=== PATIENT | male | born 1950 | race African-American/Black ===

== ENCOUNTER 2020-06-21 06:58 | Emergency (ER) | payer MEDICARE, OTHER ==
[~2020-06-21] VITALS: Ht 170.2 cm; Wt 66.0 kg
[~2020-06-21 06:58] MED LIST: ACLI400A3 IH; ALBU8.5H6 IH; CARI350T PO; FLUT1DIS5 IH; NEBI10TA3 PO; OXYC1TAB20 PO; OXYC20TA35 PO
--- NOTE | 2020-06-21 07:21 | PHYS DOC ---
Past History Past Medical History: Asthma, Heart Disease, Hypertension, Other Past Surgical History: No Surgical History Smoking: Quit Less Than 1 Year Alcohol Use: None Drug Use: None General Adult EDM: Chief Complaint: food bolus HPI: HPI: Patient is a 70-year-old male who feels like he has a piece of chicken stuck in his esophagus for last 2 hours. Patient was eating a drumstick and feels like there is a chunk of meat stuck. Patient states he was having trouble keeping liquids down but feels like it may be better now. Pain is moderate at onset and mild currently and worse with swallowing. Patient denies any recent fevers chills cough shortness of breath. Patient had similar symptoms a year ago and had to have endoscopy. Review of Systems: Review of Systems: Constitutional: Denies fever or chills Eyes: Denies change in visual acuity HENT: Denies nasal congestion or sore throat Respiratory: Denies cough or shortness of breath Cardiovascular: Denies chest pain or edema GI: Denies abdominal pain, nausea, vomiting, bloody stools or diarrhea : Denies dysuria Musculoskeletal: Denies back pain or joint pain Integument: Denies rash Neurologic: Denies headache, focal weakness or sensory changes Endocrine: Denies polyuria or polydipsia Lymphatic: Denies swollen glands Psychiatric: Denies depression or anxiety Heart Score: Risk Factors: Risk Factors: DM, Current or recent (<one month) smoker, HTN, HLP, family history of CAD, obesity. Risk Scores: Score 0 - 3: 2.5% MACE over next 6 weeks - Discharge Home Score 4 - 6: 20.3% MACE over next 6 weeks - Admit for Clinical Observation Score 7 - 10: 72.7% MACE over next 6 weeks - Early Invasive Strategies Allergies: Allergies: Allergies Coded Allergies Type Severity Reaction Last Updated Verified No Known Drug Allergies 09/02/13 No Physical Exam: PE: Constitutional: Well developed, well nourished, no acute distress, non-toxic appearance. [] HENT: Normocephalic, atraumatic, bilateral external ears normal, no trismus, nose normal. [] Eyes: PERRLA, EOMI, conjunctiva normal, no discharge. [] Neck: Normal range of motion, no tenderness, supple, no stridor. [] Cardiovascular:Heart rate regular rhythm, peripheral pulses intact, cap refill brisk Lungs & Thorax: Bilateral breath sounds clear, no respiratory distress Abdomen: Soft nontender nondistended Skin: Warm, dry, no erythema, no rash. [] Back: No tenderness, no CVA tenderness. [] Extremities: No tenderness, no cyanosis, no clubbing, ROM intact, no edema. [] Neurologic: Alert and oriented X 3, normal motor function, normal sensory function, no focal deficits noted. [] Psychologic: Affect normal, judgement normal, mood normal. [] EKG: EKG: [] Radiology/Procedures: Radiology/Procedures: [] Course & Med Decision Making: Course & Med Decision Making Pertinent Labs and Imaging studies reviewed. (See chart for details) [] 70-year-old male presents with a food bolus. Patient failed p.o. trial and was given glucagon and failed p.o. trial again. I discussed the case with Dr. Marie who is a GI doctor at [place] as well as the ER doctor, Dr. Hancock who accepts the patient to the ER. Patient will need rapid COVID testing in ER for endoscopy. [employer] Disclaimer: [employer] Disclaimer: This electronic medical record was generated, in whole or in part, using a voice recognition dictation system. Departure Departure: Impression: Primary Impression: Impacted esophageal foreign body Disposition: 02 XFER [facility] HOSP ([facility]) Condition: STABLE Referrals: VIOLET REA APRN (PCP) Justification of Admission: Justification of Admission: Justification of Admission Dx: N/A ABIODUN PASCUAL MD Jun 21, 2020 07:21
[2020-06-21] MEDS ORDERED: LIDO:MAALOX 1:1 20 ML SINGLE DOSE. PO ONE (07:30)
[2020-06-21] MEDS ORDERED: GLUCAGON,HUMAN RECOMBINANT 1 MG KIT. IV ONE (07:45)
[2020-06-21 09:23] VITALS: BP 140/86
== END 2020-06-21 10:22 | disposition short-term general hospital (02) ==
LOC: ER 06:58
DX: T18.128A Food in esophagus causing other injury, initial encounter (principal); K56.49 Other impaction of intestine; I11.9 Hypertensive heart disease without heart failure; J45.909 Unspecified asthma, uncomplicated; Z87.891 Personal history of nicotine dependence; X58.XXXA Exposure to other specified factors, initial encounter; Y93.89 Activity, other specified; Y92.89 Other specified places as the place of occurrence of the external cause; Y99.8 Other external cause status
CPT/HCPCS: 96374; 99285; J1610

== ENCOUNTER → 2021-01-07 | Outpatient (CLI) | payer MEDICARE | LOC: LAB 10:30 | PROVIDERS: ATTEND Internal Medicine | DX: Z01.812 Encounter for preprocedural laboratory examination (principal); Z20.822 Contact with and (suspected) exposure to COVID-19 | CPT/HCPCS: C9803; U0003; U0005 ==

== ENCOUNTER 2021-05-14 03:35 | Emergency (ER) | payer MEDICARE ==
[~2021-05-14] VITALS: Ht 170.2 cm; Wt 66.0 kg
--- NOTE | 2021-05-14 03:38 | PHYS DOC ---
Past History Past Medical History: Asthma, COPD, Heart Disease, Hypertension, Other Past Surgical History: Tonsillectomy Smoking: Quit Less Than 1 Year Alcohol Use: Occasionally Drug Use: None General Adult HPI: HPI: ",, I couldnt.. get ... control... of .... my ...emphysema...".. " Usually when I get this bad..I got to get started on prednisone..." Patient is a 71 year old male who presents with above hx and complaints of exacerbation of his emphysema and COPD. Patient currently hypoxic on room air.. Pt. hx of emphysema changes with the past 20 years. Patient has excess of [id number] smoking history. No history of specific ill contacts. No recent travel. Patient did complete his Moderna vaccination. Patient denies any recent travel outside the [place] area. No history immunosuppression. Normally follows with Dr. Manuel. Patient no longer smokes. Review of Systems: Review of Systems: Constitutional: Denies fever or chills Eyes: Denies change in visual acuity HENT: Denies nasal congestion or sore throat Respiratory: History of cough, shortness of breath and wheezing Cardiovascular: Denies chest pain or edema GI: Denies abdominal pain, nausea, vomiting, bloody stools or diarrhea : Denies dysuria Musculoskeletal: Denies back pain or joint pain Integument: Denies rash Neurologic: Denies headache, focal weakness or sensory changes Endocrine: Denies polyuria or polydipsia Lymphatic: Denies swollen glands Psychiatric: Denies depression or anxiety Family History: Family History: Noncontributory to presentation Current Medications: Current Meds: See nursing for home meds Allergies: Allergies: Allergies Coded Allergies Type Severity Reaction Last Updated Verified No Known Drug Allergies 09/02/13 No Physical Exam: PE: Constitutional: Moderately acute distress, non-toxic appearance. [] HENT: Normocephalic, atraumatic, bilateral external ears normal, oropharynx moist, no oral exudates, nose slightly swollen turbinates with clear rhinorrhea Eyes: PERRLA, EOMI, conjunctiva normal, no discharge. [] Neck: Normal range of motion, no tenderness, supple, no stridor. [] Cardiovascular: Tachycardia heart rate regular rhythm, no murmur [] Lungs & Thorax: Bilateral breath sounds equal apex with scattered wheezes on auscultation [] Abdomen: Bowel sounds normal, soft, no tenderness, no masses, no pulsatile masses. [] Skin: Warm, dry, no erythema, no rash. [] Back: No tenderness, no CVA tenderness. [] Extremities: No tenderness, no cyanosis, no clubbing, ROM intact, no edema. No cording appreciated Neurologic: Alert and oriented X 3, normal motor function, normal sensory function, no focal deficits noted. [] Psychologic: Affect normal, judgement normal, mood normal. [] EKG: EKG: My interpretation EKG shows a sinus tachycardia 100 bpm. No findings of acute STEMI or contralateral changes. Time EKG is 357 hours [] Radiology/Procedures: Radiology/Procedures: [][place] [address] IMAGING REPORT Signed PATIENT: TONI SCHREIBER ACCOUNT: [id number] : 1950 LOCATION: ER AGE: 71 SEX: M EXAM STATUS: REG ER ORD. PHYSICIAN: KANA CORDON MD REASON: dyspnea- hypoxia PROCEDURE: PORTABLE CHEST 1V Study: XR CHEST 1V Indication: Dyspnea. Hypoxia. Comparison: 10/22/2014 Findings: The cardiomediastinal silhouette is within normal limits for size. Unchanged hilar configuration. Nipple shadow noted on the right. No focal airspace infiltrate, pleural effusion or pneumothorax. Increased lung volumes lucency of the left upper lung relative to the right. Impression: 1. No acute radiographic abnormality of the chest. 2. Constellation of findings highly suggestive of underlying emphysema potentially with bullae formation at the upper lung on the left. Correlate for a smoking history. Electronically signed by: SHANNAN CAMACHO MD (05/14/2021 4:30 AM) [facility] DICTATED AND SIGNED BY: SHANNAN CAMACHO MD DATE: 05/14/21 0429 CC: ZARIA MANUEL MD; KANA CORDON MD ~MTH0 0 Heart Score: C/O Chest Pain: N/A HEART Score for Chest Pain: HEART Score for Chest Pain Response (Comments) Value History Moderately Suspicious 1 ECG Nonspecific Repolarizatio 1 Age > 65 2 Risk Factors 1 or 2 Risk Factors 1 Troponin < Normal Limit 0 Total 5 Risk Factors: Risk Factors: DM, Current or recent (<one month) smoker, HTN, HLP, family history of CAD, obesity. Risk Scores: Score 0 - 3: 2.5% MACE over next 6 weeks - Discharge Home Score 4 - 6: 20.3% MACE over next 6 weeks - Admit for Clinical Observation Score 7 - 10: 72.7% MACE over next 6 weeks - Early Invasive Strategies Course & Med Decision Making: Course & Med Decision Making Pertinent Labs and Imaging studies reviewed. (See chart for details) Patient currently declining admission. Is able to maintain sats on room air above 90%. Patient to use MDI 2 puffs 4 times a day. Take prednisone 50 mg a day x5 days. . Take Zithromax 250 mg a day. Follow-up with Dr. Manuel.. Return if any concerns. Wear clonidine patch until follow-up with Dr. Manuel. Impression: 1. COPD/emphysema exacerbation 2. Hypertension 3. Hx. Completed Moderna Vaccination [] Dragon Disclaimer: Dragon Disclaimer: This electronic medical record was generated, in whole or in part, using a voice recognition dictation system. Departure Departure: Referrals: ZARIA MANUEL MD (PCP) Scripts Azithromycin (ZITHROMAX) 250 Mg Tablet 250 MG PO DAILY for ANTI-BIOTIC for 5 Days, #5 TAB 0 Refills Prov: KANA CORDON MD 05/14/21 Prednisone (PREDNISONE) 50 Mg Tablet 50 MG PO DAILY for cough for 5 Days, #5 TAB Prov: KANA CORDON MD 05/14/21 Dragon Disclaimer This chart was dictated in whole or in part using Voice Recognition software in a busy, high-work load, and often noisy Emergency Department environment. It may contain unintended and wholly unrecognized errors or omissions. Dragon Disclaimer This chart was dictated in whole or in part using Voice Recognition software in a busy, high-work load, and often noisy Emergency Department environment. It may contain unintended and wholly unrecognized errors or omissions. KANA CORDON MD May 14, 2021 03:38
[2021-05-14] MEDS ORDERED: IPRATRPIUM/ALBUTEROL 0.5/2.5MG 3 ML NEBU. NEB ONE (04:00)
[2021-05-14] MEDS ORDERED: methylPREDNISolone SOD SUCC PF 125 MG/2 ML VIAL. IV ONE (04:00)
[2021-05-14] MEDS ORDERED: ASPIRIN CHEWABLE 81 MG TABLET. PO ONE (04:00)
[2021-05-14 04:28] LABS: BASO # 0.1 x10^3/uL (0.0-0.2); BASO % 1 % (0-3); EOS # 0.2 x10^3/uL (0.0-0.7); EOS % 3 % (0-3); HEMATOCRIT 44.6 % (39.0-53.0); HEMOGLOBIN 14.6 g/dL (13.0-17.5); LYMPH # 1.2 x10^3/uL (1.0-4.8); LYMPH % 17 % (24-48); MEAN CORPUSCULAR HEMOGLOBIN 29 pg (25-35); MEAN CORPUSCULAR HGB CONC 33 g/dL (31-37); MEAN CORPUSCULAR VOLUME 89 fL (79-100); MONO # 0.8 x10^3/uL (0.0-1.1); MONO % 12 % (0-9); NEUT # 4.5 x10^3uL (1.8-7.7); NEUT % 66 % (31-73); PLATELET COUNT 159 x10^3/uL (140-400); RED BLOOD COUNT 5.02 x10^6/uL (4.30-5.70); WHITE BLOOD COUNT 6.8 x10^3/uL (4.0-11.0)
--- NOTE | 2021-05-14 04:33 | RAD ---
Study: XR CHEST 1V Indication: Dyspnea. Hypoxia. Comparison: 10/22/2014 Findings: The cardiomediastinal silhouette is within normal limits for size. Unchanged hilar configuration. Nipple shadow noted on the right. No focal airspace infiltrate, pleural effusion or pneumothorax. Inc reased lung volumes lucency of the left upper lung relative to the right. Impression: 1. No acute radiographic abnormality of the chest. 2. Constellation of findings highly suggestive of underlying emphysema potentially with bullae format ion at the upper lung on the left. Correlate for a smoking history. Electronically signed by: SHANNAN CAMACHO MD (05/14/2021 4:30 AM) [facility]
[2021-05-14 04:49] LABS: CALCIUM 8.5 mg/dL (8.5-10.1); CREATININE 1.1 mg/dL (0.7-1.3); GFR 80.1; POTASSIUM 4.2 mmol/L (3.5-5.1)
[2021-05-14] MEDS: IV RINGERS SOLUTION,LACTATED 1,000 ML IV SCH ×2 (04:58→05:03)
[2021-05-14 05:03] LABS: ALBUMIN 4.2 g/dL (3.4-5.0); DIRECT BILIRUBIN 0.2 mg/dL (0.0-0.2); MAGNESIUM 2.1 mg/dL (1.8-2.4); TOTAL BILIRUBIN 0.8 mg/dL (0.2-1.0)
--- NOTE | 2021-05-14 05:10 | EKG ---
[address] [address] Test Date: 2021-05-14 Test Time: 03:57:05 Pat Name: TONI SCHREIBER Department: Room: Gender: M Rivet Bucker: : 1950 Requested By: KANA CORDON Order Number: [id number] Reading MD: Measurements Intervals [place] Rate: 100 P: 75 NM: 114 QRS: 50 QRSD: 84 T: 38 QT: 344 QTc: 447 Interpretive Statements SINUS RHYTHM NO SPECIFIC ECG ABNORMALITIES RI6.02 No previous ECG available for comparison
[2021-05-14] MEDS ORDERED: PRED50TA PO (05:36)
[2021-05-14] MEDS ORDERED: AZIT250T PO (05:36)
[2021-05-14] MEDS ORDERED: cloNIDine TTS-2 1 PATCH PATCH TD ONE (06:00)
[2021-05-14] MEDS ORDERED: AZITHROMYCIN 250 MG TABLET. PO ONE (06:00)
[2021-05-14] MEDS ORDERED: cloNIDine HCL 0.1 MG TABLET PO ONE (06:00)
[2021-05-14 06:25] VITALS: BP 157/92
[2021-05-14 06:57] LABS: BARBITURATES NEG (NEG); BENZODIAZEPINES NEG (NEG); CANNABINOIDS NEG (NEG); COCAINE NEG (NEG); METHADONE NEG (NEG); OPIATES NEG (NEG); PHENCYCLIDINE NEG (NEG)
[2021-05-14 07:03] LABS: BILIRUBIN,URINE NEG (NEG); CLARITY,URINE CLEAR; COLOR,URINE YELLOW; GLUCOSE,URINE NEG (NEG); NITRITE,URINE NEG (NEG); UROBILINOGEN,URINE 0.2 mg/dL (0.2 mg/dL)
[2021-05-14 07:04] LABS: BACTERIA,URINE 0 /HPF (0-FEW); RBC,URINE OCC /HPF (0-2); SQUAMOUS EPITHELIAL CELL,UR OCC /LPF
[2021-05-14 07:10] LABS: AMPHETAMINE/METHAMPHETAMINE NEG (NEG)
[2021-05-14 14:25] LABS: THYROID STIM HORMONE (TSH) 0.829 uIU/mL (0.358-3.740)
== END 2021-05-14 06:28 | disposition home or self-care (01) ==
LOC: ER 03:35
DX: J43.9 Emphysema, unspecified (principal); I10 Essential (primary) hypertension; I11.9 Hypertensive heart disease without heart failure; Z20.822 Contact with and (suspected) exposure to COVID-19; Z87.891 Personal history of nicotine dependence
CPT/HCPCS: 71045; 80048; 80061; 80076; 80307; 81001; 82550; 83735; 83880; 84443; 84484; 85025; 85379; 85610; 85730; 87086; 93005; 94640; 96361; 96374; 99285; C9803; J2930; J7120; U0003